=== PATIENT | male | born 1995 | race Caucasian/White ===

== ENCOUNTER 2019-01-19 23:03 | Emergency (ER) | payer OTHER ==
[2019-01-20 01:41] LABS: ADD MAN DIFF? NO
[2019-01-20 01:42] LABS: BASOPHILS % 0.2 % (0.0-2.0); EOSINOPHILS # 0.2 10^3/ul (0.0-0.5); HEMATOCRIT 44.8 % (42.0-52.0); HEMOGLOBIN 14.4 g/dl (14.0-18.0); LYMPHOCYTES # 0.9 10^3/ul (0.8-2.9); LYMPHOCYTES % 4.7 % (15.0-51.0); MEAN CORPUSCULAR HEMOGLOBIN 27.9 pg (29.0-33.0); MEAN CORPUSCULAR HGB CONC 32.1 g/dl (32.0-37.0); MEAN CORPUSCULAR VOLUME 86.8 fl (82.0-101.0); MEAN PLATELET VOLUME 10.7 fl (7.4-10.4); MONOCYTE # 1.1 10^3/ul (0.3-0.9); MONOCYTES % 6.1 % (0.0-11.0); NEUTROPHILS % 87.6 % (39.0-77.0); PLATELET COUNT 231 10^3/UL (140-415); RED BLOOD COUNT 5.16 10^6/ul (4.70-6.10); RED CELL DISTRIBUTION WIDTH 13.2 % (11.5-14.5)
[2019-01-20 01:42] LABS: WHITE BLOOD COUNT 18.2 10^3/ul (4.8-10.8)
[2019-01-20] MEDS: ONDANSETRON 4 MG INJ IV (01:44)
[2019-01-20] MEDS: SOD CHLORIDE 0.9% 1,000 ML IV (01:44)
[2019-01-20 03:59] LABS: ANION GAP 11 (5-13); BLOOD UREA NITROGEN 16 mg/dl (7-20); CALCIUM 9.5 mg/dl (8.4-10.2); CARBON DIOXIDE 26 mmol/L (21-31); CHLORIDE 105 mmol/L (97-110); CREATININE 0.66 mg/dl (0.61-1.24); Estimated GFR > 60 mL/min (>60); GLUCOSE 99 mg/dl (70-220); POTASSIUM 4.1 mmol/L (3.5-5.1); SODIUM 142 mmol/L (135-144)
== END 2019-01-20 04:21 | disposition home or self-care (01) ==
LOC: FTE 23:03
DX: K52.9 Noninfective gastroenteritis and colitis, unspecified (principal); J45.909 Unspecified asthma, uncomplicated
CPT/HCPCS: 36415; 80048; 85025; 96374; 99284-25